=== PATIENT | female | born 1990 | race Caucasian/White ===

== ENCOUNTER 2019-08-05 15:28 | Emergency (ER) | payer BC, OTHER ==
[2019-08-05] MEDS ORDERED: SODIUM CHLORIDE 0.9% 1,000 ML IV STA (18:26)
--- NOTE | 2019-08-05 18:48 | ED ---
General Adult HPI - General Source: patient Mode of arrival: ambulatory Limitations: no limitations <Mitzy Wolff - Last Filed: 08/05/19 20:35> <Cassandra Murcia - Last Filed: 08/08/19 21:24> - General Chief complaint: Abdominal Pain Stated complaint: 14 wks preg/vaginal bleeding Time Seen by Provider: 08/05/19 18:10 - History of Present Illness Initial comments: 29-year-old female patient presents to the emergency department today for evaluation of vaginal bleeding. Patient states she is approximately 14 weeks . States that she had some bleeding earlier today which has since resolved. States that it was mild bleeding, she did not have to wear a pad. She did have one small blood clot. Patient is , with 2 miscarriages in the past before 8 weeks gestation. Patient states she has had mild intermittent right pelvic discomfort. She states she is having urinary frequency but denies any dysuria or urinary urgency. She denies fever or chills. Denies any difficulty with bowel movements. Patient states she is O+ and her blood type. She has seen Dr. Lopez for initial care. She did have an ultrasound 2 weeks ago showing a viable intrauterine . Patient denies any recent rash, shortness breath, chest pain, nausea, vomiting, diarrhea, constipation, back pain, numbness, tingling, dizziness, weakness, headache, visual changes, or any other complaints. (Mitzy Wolff) - Related Data Previous Rx's Medication Instructions Recorded HYDROcodone/APAP 5-325MG [[place] 5] 1 each PO Q4HR PRN #20 tab 07/14/15 Allergies Allergy/AdvReac Type Severity Reaction Status Date / Time No Known Allergies Allergy Verified 07/14/15 22:12 Review of Systems ROS Other: All systems not noted in ROS Statement are negative. <Mitzy Wolff - Last Filed: 08/05/19 20:35> ROS Other: All systems not noted in ROS Statement are negative. <Cassandra Murcia - Last Filed: 08/08/19 21:24> ROS Statement: Those systems with pertinent positive or pertinent negative responses have been documented in the HPI. Past Medical History Past Medical History: No Reported History History of Any Multi-Drug Resistant Organisms: None Reported Past Surgical History: Section Additional Past Surgical History / Comment(s): eye Past Psychological History: No Psychological Hx Reported Smoking Status: Never smoker Past Alcohol Use History: None Reported Past Drug Use History: None Reported <Mitzy Wolff - Last Filed: 08/05/19 20:35> General Exam Limitations: no limitations General appearance: alert, in no apparent distress, other (This is a well-de veloped, well-nourished adult female patient in no acute distress. Vital signs upon presentation are temperature 98.2F, pulse 106, respirations 16, blood pressure 135/90, pulse ox 99% on room air.) Eye exam: Present: normal appearance, PERRL, EOMI. Absent: scleral icterus, conjunctival injection, periorbital swelling ENT exam: Present: normal exam, normal oropharynx, mucous membranes moist Respiratory exam: Present: normal lung sounds bilaterally. Absent: respiratory distress, wheezes, rales, rhonchi, stridor Cardiovascular Exam: Present: normal rhythm, tachycardia, normal heart sounds. Absent: systolic murmur, diastolic murmur, rubs, gallop, clicks GI/Abdominal exam: Present: soft, normal bowel sounds. Absent: distended, tenderness, guarding, rebound, rigid Neurological exam: Present: alert, oriented X3, CN II-XII intact Psychiatric exam: Present: normal affect, normal mood Skin exam: Present: warm, dry, intact, normal color. Absent: rash <Mitzy Wolff - Last Filed: 08/05/19 20:35> Course Vital Signs 08/05/19 08/05/19 16:02 20:36 Temperature 98.2 F 97.8 F Pulse Rate 106 H 98 Respiratory 16 18 Rate Blood Pressure 155/90 127/79 O2 Sat by Pulse 99 99 Oximetry Medical Decision Making - Lab Data Result diagrams: 08/05/19 18:58 08/05/19 18:58 - Radiology Data Radiology results: report reviewed, image reviewed <Mitzy Wolff - Last Filed: 08/05/19 20:35> - Lab Data Result diagrams: 08/05/19 18:58 08/05/19 18:58 <Cassandra Murcia - Last Filed: 08/08/19 21:24> - Medical Decision Making 29-year-old female patient presented to the emergency department today for evaluation of vaginal bleeding. Patient is approximately 14 weeks . Physical examination reveals a soft nontender abdomen. Urinalysis is negative for signs of infection. Ultrasound was obtained and shows a viable intrauterine measuring 15 weeks 3 days ago, getting process. No evidence of placenta previa. ABO Rh is O+. She will be discharged follow up with her [facility] for recheck as soon as possible. Return parameters discussed in detail. She verbalizes understanding and agrees with this plan. (Mitzy Wolff) I was available for consultation in the emergency department. The history and physical exam were done by the midlevel provider. I was consulted for this patients care. I reviewed the case with the midlevel provider and based on their presentation of the patient, I agree with the assessment, medical decision making and plan of care as documented. Chart was dictated using [employer] dictation software. Attempts were made to correct any dictation errors however some typographical errors may persist. (Cassandra Murcia) - Lab Data Lab Results 08/05/19 08/05/19 08/05/19 Range/Units 18:58 18:58 18:58 WBC 10.3 (3.8-10.6) k/uL RBC 4.37 (3.80-5.40) m/uL Hgb 12.9 (11.4-16.0) gm/dL Hct 37.2 (34.0-46.0) % MCV 85.3 (80.0-100.0) fL MCH 29.7 (25.0-35.0) pg MCHC 34.8 (31.0-37.0) g/dL RDW 13.6 (11.5-15.5) % Plt Count 253 (150-450) k/uL Neutrophils % 81 % Lymphocytes % 10 % Monocytes % 6 % Eosinophils % 1 % Basophils % 0 % Neutrophils # 8.4 H (1.3-7.7) k/uL Lymphocytes # 1.0 (1.0-4.8) k/uL Monocytes # 0.7 (0-1.0) k/uL Eosinophils # 0.1 (0-0.7) k/uL Basophils # 0.0 (0-0.2) k/uL Sodium 137 (137-145) mmol/L Potassium 4.0 (3.5-5.1) mmol/L Chloride 105 (98-107) mmol/L Carbon Dioxide 22 (22-30) mmol/L Anion Gap 10 mmol/L BUN 9 (7-17) mg/dL Creatinine 0.53 (0.52-1.04) mg/dL Est GFR (CKD-EPI)AfAm >90 (>60 ml/min/1.73 sqM) Est GFR (CKD-EPI)NonAf >90 (>60 ml/min/1.73 sqM) Glucose 94 (74-99) mg/dL Calcium 9.3 (8.4-10.2) mg/dL Total Bilirubin 0.5 (0.2-1.3) mg/dL AST 25 (14-36) U/L ALT 14 (4-34) U/L Alkaline Phosphatase 69 (38-126) U/L Total Protein 7.5 (6.3-8.2) g/dL Albumin 4.1 (3.5-5.0) g/dL Amylase 56 (30-110) U/L Lipase 101 (23-300) U/L Urine Color Urine Appearance (Clear) Urine pH (5.0-8.0) Ur Specific [place] (1.001-1.035) Urine Protein (Negative) Urine Glucose (UA) (Negative) Urine Ketones (Negative) Urine Blood (Negative) Urine Nitrite (Negative) Urine Bilirubin (Negative) Urine Urobilinogen (<2.0) mg/dL Ur Leukocyte Esterase (Negative) Blood Type O Positive Blood Type Recheck O Pos Bld Type Recheck Status No 08/05/19 Range/Units 18:58 WBC (3.8-10.6) k/uL RBC (3.80-5.40) m/uL Hgb (11.4-16.0) gm/dL Hct (34.0-46.0) % MCV (80.0-100.0) fL MCH (25.0-35.0) pg MCHC (31.0-37.0) g/dL RDW (11.5-15.5) % Plt Count (150-450) k/uL Neutrophils % % Lymphocytes % % Monocytes % % Eosinophils % % Basophils % % Neutrophils # (1.3-7.7) k/uL Lymphocytes # (1.0-4.8) k/uL Monocytes # (0-1.0) k/uL Eosinophils # (0-0.7) k/uL Basophils # (0-0.2) k/uL Sodium (137-145) mmol/L Potassium (3.5-5.1) mmol/L Chloride (98-107) mmol/L Carbon Dioxide (22-30) mmol/L Anion Gap mmol/L BUN (7-17) mg/dL Creatinine (0.52-1.04) mg/dL Est GFR (CKD-EPI)AfAm (>60 ml/min/1.73 sqM) Est GFR (CKD-EPI)NonAf (>60 ml/min/1.73 sqM) Glucose (74-99) mg/dL Calcium (8.4-10.2) mg/dL Total Bilirubin (0.2-1.3) mg/dL AST (14-36) U/L ALT (4-34) U/L Alkaline Phosphatase (38-126) U/L Total Protein (6.3-8.2) g/dL Albumin (3.5-5.0) g/dL Amylase (30-110) U/L Lipase (23-300) U/L Urine Color Light Yellow Urine Appearance Clear (Clear) Urine pH 6.0 (5.0-8.0) Ur Specific [place] 1.004 (1.001-1.035) Urine Protein Negative (Negative) Urine Glucose (UA) Negative (Negative) Urine Ketones Negative (Negative) Urine Blood Negative (Negative) Urine Nitrite Negative (Negative) Urine Bilirubin Negative (Negative) Urine Urobilinogen <2.0 (<2.0) mg/dL Ur Leukocyte Esterase Negative (Negative) Blood Type Blood Type Recheck Bld Type Recheck Status - Radiology Data Ultrasound of the fetus is obtained. Report reviewed in its entirety. Impression by Dr. Canales shows ultrasound gestational age 15 weeks and 3 days. No Acute process. Heart rate is 154. (Mitzy Wolff) Disposition Is patient prescribed a controlled substance at d/c from ED?: No Time of Disposition: 20:30 <Mitzy Wolff - Last Filed: 08/05/19 20:35> <Cassandra Murcia - Last Filed: 08/08/19 21:24> Clinical Impression: Vaginal bleeding during Disposition: HOME SELF-CARE Condition: Good Instructions (If sedation given, give patient instructions): Abdominal Pain in (ED) Additional Instructions: Monitor bleeding. Follow-up with your [facility] for recheck as soon as possible. Return to the emergency department immediately for any new, worsening, or concerning symptoms. Referrals: Panfilo Mercado DO [Primary Care Provider] - 1-2 days
[2019-08-05 19:33] LABS: Basophils % (A) 0 %; Eosinophils # (A) 0.1 k/uL (0-0.7); Eosinophils % (A) 1 %; HCT 37.2 % (34.0-46.0); HGB 12.9 gm/dL (11.4-16.0); Lymphocytes % (A) 10 %; MCH 29.7 pg (25.0-35.0); MCHC 34.8 g/dL (31.0-37.0); MCV 85.3 fL (80.0-100.0); Mean Platelet Volume 7.4; Monocytes # (A) 0.7 k/uL (0-1.0); Monocytes % (A) 6 %; Neutrophils # (A) 8.4 k/uL (1.3-7.7); Neutrophils % (A) 81 %; Platelet Count 253 k/uL (150-450); RBC 4.37 m/uL (3.80-5.40); RDW 13.6 % (11.5-15.5); WBC 10.3 k/uL (3.8-10.6)
[2019-08-05 19:40] LABS: Appearance,Urine Clear (Clear); Bilirubin,Urine Negative (Negative); Blood,Urine Negative (Negative); Color,Urine Light Yellow; Glucose,Urine (UA) Negative (Negative); Ketones,Urine Negative (Negative); Leukocyte Esterase,Urine Negative (Negative); Nitrite,Urine Negative (Negative); Protein,Urine Negative (Negative); Specific Gravity,Urine 1.004 (1.001-1.035); Urobilinogen,Urine <2.0 mg/dL (<2.0)
[2019-08-05 19:45] LABS: ALT 14 U/L (4-34); AST 25 U/L (14-36); African American GFR (CKD) >90 (>60 ml/min/1.73 sqM); Albumin 4.1 g/dL (3.5-5.0); Alkaline Phosphatase 69 U/L (38-126); Amylase 56 U/L (30-110); Anion Gap 10 mmol/L; Blood Urea Nitrogen 9 mg/dL (7-17); Calcium 9.3 mg/dL (8.4-10.2); Carbon Dioxide 22 mmol/L (22-30); Chloride 105 mmol/L (98-107); Glucose 94 mg/dL (74-99); Non-African American GFR(CKD) >90 (>60 ml/min/1.73 sqM); Sodium 137 mmol/L (137-145); Total Bilirubin 0.5 mg/dL (0.2-1.3); Total Protein 7.5 g/dL (6.3-8.2)
--- NOTE | 2019-08-05 19:57 | US ---
EXAMINATION TYPE: US OB >= 14 wk fetus DATE OF EXAM: 08/05/2019 COMPARISON: None CLINICAL HISTORY: SpottingSpotting TECHNIQUE: Transabdominal (TA) GESTATIONAL AGE / DATING Physician Established: (14weeks/5 days) EDC: 01/29/2020 Dates by LMP: (14weeks/5 days) EDC: 01/29/2020 Dates by First Scan: No previous this is first scan Dates by Current Scan: (15weeks/3 days) EDC: 01/24/2020 SURVEY IUP: Single PLACENTA: Posterior PREVIA: No Previa JADEN: 12cm Normal CERVICAL LENGTH (transabdominal: norm > 3.0cm): 3.2 cm BIOMETRY PRESENTATION: Variable LIE: Variable BPD: 3.0cm 15weeks / 3 days HC: 10cm 14weeks / 5 days AC: 9.6cm 15weeks / 5 days FL: 1.7cm 15weeks / 0 days ESTIMATED WEIGHT IN GRAMS: 121.76g ESTIMATED WEIGHT IN LBS/OZ: 0 lbs. 4 oz. WEIGHT PERCENTAGE BASED ON ESTABLISHED DATES: 80.9% HC/AC: 1.0cm FL/AC: 17.65 cm HEART RATE: 154pm RHYTHM: Normal IMPRESSION: The ultrasound gestational age is 15 weeks and 3 days. No complicating process.
[2019-08-05 20:37] VITALS: BP 127/79; PULSE 98; RESP 18; TEMP 97.8
== END 2019-08-05 20:41 | disposition home or self-care (01) ==
LOC: EC 15:28
DX: O20.9 Hemorrhage in early pregnancy, unspecified (principal); O99.89 Other specified diseases and conditions complicating pregnancy, childbirth and the puerperium; R00.0 Tachycardia, unspecified; R35.0 Frequency of micturition; Z67.40 Type O blood, Rh positive; Z87.59 Personal history of other complications of pregnancy, childbirth and the puerperium; Z98.890 Other specified postprocedural states; Z3A.15 15 weeks gestation of pregnancy
CPT/HCPCS: 36415; 76805; 80053; 81003; 82150; 83690; 85025; 86900; 86901; 96360; 96361; 99284

== ENCOUNTER 2020-01-25 06:09 | Inpatient (IN) | payer BC, OTHER ==
[2020-01-21 13:42] VITALS: BMI 31.3
--- NOTE | 2020-01-24 17:09 | P.HPOB ---
History of Present Illness H&P Date: 01/24/20 Chief Complaint: Breech, previous This is a 29 y.o. female, 5, para 2, with an estimated date of confinement of 01/29/2020, estimated gestational age of 39-3/7 weeks, who presents for scheduled repeat section due to breech presentation and history of previous section. She admits to good movement and has some contractions. course has been essentially uncomplicated. labs: GC/Chlamydia/Trich-neg Hepatitis B surface antigen-neg RPR-NR Rubella-immune Blood type-O+ Antibody screen-neg Hemoglobin-12.7 Random glucose-89 1 hr. GTT-149, 3 hr. GTT-wnl GBS-positive OB Hx: . History of 2 miscarriages. 1 vaginal delivery followed by c- section for transverse lie (baby flipped during induction). Medical Technologist Hx: No hx STDs. Social Hx: . Works at [employer]. Review of Systems Constitutional: Denies chills, Denies fever Eyes: denies blurred vision, denies pain Ears, nose, mouth and throat: Denies headache, Denies sore throat Cardiovascular: Denies chest pain, Denies shortness of breath Respiratory: Denies cough Gastrointestinal: Reports abdominal pain (irregular contractions) Genitourinary: Reports pelvic pain, Reports Musculoskeletal: Reports low back pain Integumentary: Denies pruritus, Denies rash Neurological: Denies numbness, Denies weakness Past Medical History Past Medical History: No Reported History Additional Past Medical History / Comment(s): Scoliosis History of Any Multi-Drug Resistant Organisms: None Reported Past Surgical History: Section Additional Past Surgical History / Comment(s): lazy eye surgery left eye, D&C, Past Anesthesia/Blood Transfusion Reactions: Postoperative Nausea & Vomiting (PONV) Past Psychological History: Anxiety Smoking Status: Never smoker Past Alcohol Use History: None Reported Past Drug Use History: None Reported - Past Family History Mother Family Medical History: No Reported History Medications and Allergies Home Medications Medication Instructions Recorded Confirmed Type Pnv No.95/Ferrous Fum/Folic AC 1 each PO HS 01/21/20 01/25/20 History [ Multivitamin Tablet] Sertraline [Zoloft] 50 mg PO HS 01/21/20 01/25/20 History Allergies Allergy/AdvReac Type Severity Reaction Status Date / Time No Known Allergies Allergy Verified 01/21/20 13:36 Exam Osteopathic Statement: *. No significant issues noted on an osteopathic structural exam other than those noted in the History and Physical/Consult. HEENT: within normal limits Heart: regular rate and rhythm Lungs: clear to auscultation bilaterally Abdomen: Cervix: 1.5 cm/70%/floating heart tones: 140's by doppler Extremities: neg. Ana's Results Result Diagrams: 01/25/20 06:15 Assessment and Plan (1) 39 weeks gestation of Current Visit: No Status: Acute Code(s): Z3A.39 - 39 WEEKS GESTATION OF SNOMED Code(s): 90419785 (2) Breech presentation at Current Visit: No Status: Acute Code(s): O32.1XX0 - MATERNAL CARE FOR BREECH PRESENTATION, UNSP SNOMED Code(s): 243807212 (3) Previous delivery affecting Current Visit: No Status: Acute Code(s): O34.219 - MATERNAL CARE FOR UNSP TYPE SCAR FROM PREVIOUS DEL SNOMED Code(s): 140088912 Plan: Proceed with repeat section. I have discussed the risks, benefits, and alternative therapies for the above- mentioned procedure and for both sedation/anesthesia as well as necessary blood products administration, if indicated, as they pertain to this patient. The patient has indicated her understanding and acceptance of the risks and procedures discussed.
[~2020-01-25 06:09] MED LIST: LACTATED RINGERS 1,000 ML IV SCH
[2020-01-25] MEDS ORDERED: CITRIC ACID-SODIUM CITRATE 15 ML CUP PO ONE (06:25)
[2020-01-25] MEDS ORDERED: LACTATED RINGERS 1,000 ML IV ONE (06:25)
[2020-01-25] MEDS ORDERED: LIDOCAINE 1% (10MG/ML) FOR IV START INTRADERMA PRN (06:25)
[2020-01-25 06:56] LABS: Basophils % (A) 0 %; Eosinophils # (A) 0.1 k/uL (0-0.7); Eosinophils % (A) 1 %; HCT 33.8 % (34.0-46.0); HGB 11.4 gm/dL (11.4-16.0); Hypochromasia Slight; Lymphocytes # (A) 1.9 k/uL (1.0-4.8); Lymphocytes % (A) 20 %; MCH 27.8 pg (25.0-35.0); MCHC 33.8 g/dL (31.0-37.0); MCV 82.4 fL (80.0-100.0); Mean Platelet Volume 10.4; Monocytes # (A) 0.6 k/uL (0-1.0); Monocytes % (A) 7 %; Neutrophils # (A) 6.5 k/uL (1.3-7.7); Neutrophils % (A) 69 %; Platelet Count 214 k/uL (150-450); Poikilocytosis Slight; RDW 15.4 % (11.5-15.5); WBC 9.4 k/uL (3.8-10.6)
[2020-01-25] MEDS: LACTATED RINGERS 1,000 ML IV SCH ×4 (07:16→14:29)
[2020-01-25] MEDS ORDERED: DEXAMETHASONE SOD PHOSPHATE 10 MG/ML 1 ML VIAL ONE (08:02)
[2020-01-25] MEDS ORDERED: OXYTOCIN 10 UNIT/ML 1 ML VIAL ONE (08:02)
[2020-01-25] MEDS ORDERED: ONDANSETRON 4 MG/2 ML VIAL ONE (08:02)
[2020-01-25] MEDS ORDERED: MORPHINE SULFATE (PF) 0.3 MG/0.3 ML SYR ONE (08:02)
[2020-01-25] MEDS ORDERED: KETOROLAC 30 MG/ML 1 ML VIAL ONE (08:02)
[2020-01-25] MEDS ORDERED: fentaNYL (PF) 50 MCG/ML 2 ML AMP ONE (08:02)
[2020-01-25] MEDS ORDERED: ONDANSETRON 4 MG/2 ML VIAL IVP PRN ×2 (08:55→14:04)
[2020-01-25] MEDS ORDERED: MORPHINE SULFATE 2 MG/ML SYRINGE IVP PRN (08:55)
[2020-01-25] MEDS ORDERED: diphenhydrAMINE 50 MG/ML 1 ML VIAL IVP PRN ×3 (08:55→14:04)
[2020-01-25] MEDS ORDERED: NALOXONE 0.4 MG/ML 1 ML VIAL IV PRN ×2 (08:55→14:04)
--- NOTE | 2020-01-25 08:55 | P.OP ---
Date of Procedure: 01/25/20 Preoperative Diagnosis: 1. Intrauterine at 39-3/7 weeks. 2. History of previous section. 3. Breech presentation. Postoperative Diagnosis: 1. Intrauterine at 39-3/7 weeks. 2. History of previous section. 3. Vertex presentation. Procedure(s) Performed: Repeat low transverse section Anesthesia: spinal (Duramorph) Surgeon: Lachelle Lopez Feather Curling Machine Operator #1: Madelyn Starks Estimated Blood Loss (ml): 800 Pathology: none sent Condition: stable Disposition: floor Indications for Procedure: This is a 29-year-old female 5 para 2 at 39-3/7 weeks who presents for scheduled repeat low transverse section due to history of previous section and breech presentation. I have discussed the risks, benefits, and alternative therapies for the above- mentioned procedure and for both sedation/anesthesia as well as necessary blood products administration, if indicated, as they pertain to this patient. The patient has indicated her understanding and acceptance of the risks and procedures discussed. Operative Findings: A viable female is noted in the vertex presentation with scores of 8 at 1 minute and 9 at 5 minutes and nuchal cord times one. weight was 7 lbs. 14 oz. Normal uterus tubes and ovaries were noted. Description of Procedure: The patient is taken to the operating room where she is placed in the dorsal supine position with leftward tilt after spinal Duramorph anesthesia is given. She is prepped and draped in the normal sterile fashion. Skin was tested and found to be adequately anesthetized. A Pfannenstiel skin incision was made with a scalpel. A second knife was used to carry the incision down to the underlying layer of fascia. The fascia was nicked in the midline with a scalpel and then extended laterally bilaterally with Warren scissors. The anterior lip of the fascia was grasped with 2 Ric clamps and then dissected off the underlying rectus muscle in the midline with Warren scissors. The inferior aspect of the fascial incision was grasped with 2 Ric clamps and dissected off the underlying rectus muscle and the midline with Warren scissors. Next the peritoneum layer was tented up with 2 hemostats and then entered sharply with the scalpel. The incision is extended superiorly and inferiorly with Metzenbaum scissors. Next a DeLee retractor is placed. The vesicouterine peritoneum is entered sharply with Metzenbaum scissors and extended laterally bilaterally with Metzenbaum scissors and then the bladder flap is pushed inferiorly. The lower uterine segment is incised in transverse fashion with the scalpel and then bluntly entered with a hemostat. Clear fluid is noted. The incision was then extended laterally bilaterally with 2 fingers. Next the 's head is d elivered through the incision. Nuchal cord times one was reduced around the 's head. Nose and mouth are bulb suctioned. The remainder of the infant is easily delivered and placed on mother's abdomen. Cord is clamped and cut. is taken to warmer by nursing staff. Cord blood was obtained secondary to O+ blood type. Uterine fundus is gently massaged and placenta is delivered manually. Uterus is exteriorized and cleared of all clots and debris. Uterine incision is closed with 0 Vicryl suture in a running locked fashion. A second layer of 0 Vicryl suture is used in a running fashion for hemostasis. Once adequate hemostasis as assured, the vesicouterine peritoneum is reapproximated with 2-0 Vicryl suture in a running fashion. Posterior cul-de-sac is suctioned of all clots and debris. Uterus is returned to the abdomen. Incision is noted to be hemostatic. Peritoneal layer is closed with 0 Vicryl suture in a running fashion. Muscle layer is reapproximated with 0 Vicryl suture in interrupted fashion. Fascia layer is then closed with 0 PDS suture with 2 sutures meeting in the midline and the knots buried in either side and in the midline. The subcutaneous tissue was then closed with 2-0 Vicryl suture. Skin layer was then closed with tono. All sponge and needle counts are correct. The patient is taken to recovery room in stable condition.
[2020-01-25] MEDS ORDERED: KETOROLAC 30 MG/ML 1 ML VIAL IVP PRN (14:04)
[2020-01-25] MEDS ORDERED: METOCLOPRAMIDE 5 MG/ML 2 ML VIAL IVP PRN (14:04)
[2020-01-25] MEDS ORDERED: diphenhydrAMINE 50 MG CAP PO PRN (14:04)
[2020-01-25] MEDS ORDERED: ZOLPIDEM 5 MG TAB PO PRN (14:04)
[2020-01-25] MEDS ORDERED: diphenhydrAMINE 25 MG CAP PO PRN (14:04)
[2020-01-25] MEDS: SENNOSIDES-DOCUSATE SODIUM 1 EACH TAB PO SCH (19:51)
[2020-01-25] MEDS: IBUPROFEN 600 MG TAB PO PRN (21:56)
[2020-01-25] MEDS: SERTRALINE 50 MG TAB PO SCH (22:15)
[2020-01-25] MEDS: PRENATAL VIT-IRON-FOLIC ACID 1 EACH CAP PO SCH (22:15)
[2020-01-26] MEDS: ACETAMINOPHEN TAB 325 MG TAB PO PRN ×2 (03:21→19:49)
[2020-01-26] MEDS: SENNOSIDES-DOCUSATE SODIUM 1 EACH TAB PO SCH (07:20)
[2020-01-26] MEDS: IBUPROFEN 600 MG TAB PO PRN ×2 (07:20→14:37)
[2020-01-26 07:53] LABS: Basophils % (A) 0 %; Eosinophils % (A) 0 %; HCT 25.6 % (34.0-46.0); Hypochromasia Slight; Lymphocytes # (A) 1.2 k/uL (1.0-4.8); Lymphocytes % (A) 8 %; MCH 27.8 pg (25.0-35.0); MCHC 32.9 g/dL (31.0-37.0); MCV 84.5 fL (80.0-100.0); Monocytes % (A) 7 %; Neutrophils # (A) 12.3 k/uL (1.3-7.7); Neutrophils % (A) 83 %; Platelet Count 186 k/uL (150-450); Poikilocytosis Slight; RBC 3.03 m/uL (3.80-5.40); RDW 15.4 % (11.5-15.5); WBC 14.9 k/uL (3.8-10.6)
[2020-01-26 07:59] LABS: HGB 8.4 gm/dL (11.4-16.0)
--- NOTE | 2020-01-26 08:39 | P.PNOBGPC ---
Subjective - Subjective Principal diagnosis: Status post repeat section postoperative day #1 Interval history: Patient is doing well. Lochia is decreasing. Her pain is well-controlled on ibuprofen and Tylenol. She is not passing flatus or bowel movement yet. Patient reports: Reports appetite normal, Reports voiding normally, Reports pain well controlled, Reports ambulating normally : doing well, nursing well Objective - Vital Signs Latest vital signs: Vital Signs Temp Pulse Pulse Resp BP Pulse Ox 01/26/20 07:11 98.5 F 82 16 130/74 99 01/26/20 07:00 16 01/26/20 04:44 18 99 01/26/20 04:00 97.8 F 75 18 129/76 99 01/26/20 02:28 14 01/26/20 00:07 99 01/26/20 00:05 14 01/26/20 00:00 98.2 F 71 14 134/88 99 01/25/20 23:00 14 01/25/20 21:00 99 01/25/20 20:59 14 01/25/20 20:00 98.2 F 77 14 134/90 99 01/25/20 19:00 14 01/25/20 17:00 16 97 01/25/20 16:00 98.2 F 67 16 144/81 97 01/25/20 15:00 16 01/25/20 13:55 99 01/25/20 13:00 16 01/25/20 12:00 98.5 F 71 16 142/87 01/25/20 11:55 16 01/25/20 11:00 75 16 129/79 100 01/25/20 10:30 70 16 133/80 100 01/25/20 10:00 82 16 126/73 100 01/25/20 09:55 16 99 01/25/20 09:45 73 16 146/87 100 01/25/20 09:30 100 16 138/79 100 01/25/20 09:15 73 16 136/64 100 01/25/20 09:00 97.2 F L 66 16 139/65 99 Intake and Output 01/25/20 01/26/20 01/26/20 22:59 06:59 14:59 Output Total 1050 Balance -1050 Output: Urine 1050 Other: Voiding Method Indwelling Catheter # Voids 1 2 - Exam Extremities: Present: normal. Absent: tenderness Abdomen: Present: normal appearance, soft (Positive bowel sounds 4). Absent: distention, tenderness Incision: Present: normal, dry, intact. Absent: erythematous Uterus: Present: normal, firm. Absent: tenderness - Labs Labs: Abnormal Lab Results - Last 24 Hours (Table) 01/26/20 Range/Units 05:44 WBC 14.9 H (3.8-10.6) k/uL RBC 3.03 L (3.80-5.40) m/uL Hgb 8.4 L D (11.4-16.0) gm/dL Hct 25.6 L (34.0-46.0) % Neutrophils # 12.3 H (1.3-7.7) k/uL Assessment and Plan Assessment: Status post repeat low transverse section postoperative day #1 (1) 39 weeks gestation of Current Visit: No Status: Acute Code(s): Z3A.39 - 39 WEEKS GESTATION OF SNOMED Code(s): 30189578 (2) Breech presentation at Current Visit: No Status: Acute Code(s): O32.1XX0 - MATERNAL CARE FOR BREECH PRESENTATION, UNSP SNOMED Code(s): 829962632 (3) Previous delivery affecting Current Visit: No Status: Acute Code(s): O34.219 - MATERNAL CARE FOR UNSP TYPE SCAR FROM PREVIOUS DEL SNOMED Code(s): 891277484 Plan: Continue with postoperative and care today. Will advance diet as tolerated after flatus.
[2020-01-26] MEDS: SERTRALINE 50 MG TAB PO SCH ×2 (14:29→19:50)
[2020-01-26] MEDS: PRENATAL VIT-IRON-FOLIC ACID 1 EACH CAP PO SCH ×2 (14:29→19:49)
[2020-01-26] MEDS: LACTATED RINGERS 1,000 ML IV SCH (14:30)
[2020-01-27] MEDS: SENNOSIDES-DOCUSATE SODIUM 1 EACH TAB PO SCH ×2 (00:09→09:06)
[2020-01-27] MEDS: IBUPROFEN 600 MG TAB PO PRN ×2 (00:09→09:06)
[2020-01-27 06:42] LABS: Basophils % (A) 0 %; Eosinophils # (A) 0.1 k/uL (0-0.7); Eosinophils % (A) 1 %; HCT 28.6 % (34.0-46.0); HGB 9.1 gm/dL (11.4-16.0); Hypochromasia Slight; Lymphocytes # (A) 1.2 k/uL (1.0-4.8); Lymphocytes % (A) 13 %; MCHC 31.8 g/dL (31.0-37.0); MCV 84.7 fL (80.0-100.0); Mean Platelet Volume 9.2; Monocytes # (A) 0.5 k/uL (0-1.0); Monocytes % (A) 5 %; Neutrophils % (A) 78 %; Platelet Count 178 k/uL (150-450); RBC 3.38 m/uL (3.80-5.40)
--- NOTE | 2020-01-27 08:43 | P.DS ---
Providers Date of admission: 01/25/20 06:09 Expected date of discharge: 01/27/20 Attending physician: Lachelle Lopez Primary care physician: Stated None - Discharge Diagnosis(es) (1) 39 weeks gestation of Current Visit: No Status: Acute (2) Breech presentation at Current Visit: No Status: Acute (3) Previous delivery affecting Current Visit: No Status: Acute Hospital Course: This is a 29-year-old female 5 para 2 at 39-3/7 weeks who presented for scheduled section. She underwent a repeat low transverse section on 01/25/2020 and delivered a viable female infant with scores of 8 at 1 minute and 9 at 5 minutes and infant weight of 7 lbs. 14 oz. with nuchal cord times one on 01/25/2020. Her postoperative course was uncomplicated. Her pain is been well controlled with ibuprofen and Tylenol. She is passing flatus and bowel movement. She is urinating without difficulty. She is breast- feeding. Vital signs are stable. Abdomen is soft with fundus firm and nontender. Incision is clean dry and intact with tono in place. Extremities show negative Homans. Impression is status post repeat section postoperative day #2. Plan is to discharge home today. Routine postoperative and instructions are given. Tono will be removed and Steri-Strips placed prior to discharge. She will be given a prescription for ibuprofen. She has a breast pump at home. She is advised to follow up in the office in approximately 2 weeks for a post operative check and in 6 weeks for a check. She is advised to call the office if she has any further questions or concerns prior to her appointment time. Procedures: Repeat low transverse section on 01/25/2020 Patient Condition at Discharge: Stable Plan - Discharge Summary Discharge Rx Participant: Yes New Discharge Prescriptions: No Action Sertraline [Zoloft] 50 mg PO HS Pnv No.95/Ferrous Fum/Folic AC [ Multivitamin Tablet] 1 each PO HS Discharge Medication List Pnv No.95/Ferrous Fum/Folic AC [ Multivitamin Tablet] 1 each PO HS 01/21/20 [History] Sertraline [Zoloft] 50 mg PO HS 01/21/20 [History]
[2020-01-27 09:52] VITALS: BP 128/82; PULSE 77; RESP 16; TEMP 98.3
== END 2020-01-27 11:00 | disposition home or self-care (01) | DRG 788 ==
LOC: 4FBP 06:09
PROVIDERS: ADMIT Obstetrics & Gynecology; ATTEND Obstetrics & Gynecology
PROC: 10D00Z1 Extraction of Products of Conception, Low, Open Approach (ICD-10-PCS; principal; 2020-01-25 08:00)
DX: O34.211 Maternal care for low transverse scar from previous cesarean delivery (principal); F41.9 Anxiety disorder, unspecified; O69.81X0 Labor and delivery complicated by cord around neck, without compression, not applicable or unspecified; N85.8 Other specified noninflammatory disorders of uterus; O99.344 Other mental disorders complicating childbirth; M41.9 Scoliosis, unspecified; O99.89 Other specified diseases and conditions complicating pregnancy, childbirth and the puerperium; Z37.0 Single live birth; Z3A.39 39 weeks gestation of pregnancy; Z79.899 Other long term (current) drug therapy; Z98.890 Other specified postprocedural states; Z86.69 Personal history of other diseases of the nervous system and sense organs
CPT/HCPCS: 85025; 86850; 86900; 86901